=== PATIENT | male | born 1990 | race Caucasian/White ===

== ENCOUNTER 2016-11-17 00:26 | Emergency (ER) | payer BC, OTHER ==
[~2016-11-17] VITALS: Ht 182.9 cm; Wt 77.0 kg
[2016-11-17 00:37] VITALS: Ht 182.9 cm; Wt 77.0 kg
--- NOTE | 2016-11-17 02:18 | ERD ---
ER Documentation Chief Complaint Date/Time DATE: 11/17/16 TIME: 02:16 Chief Complaint RIGHT MIDDLE FINGER LACERATION WHILE WORKING ON MACHINE HPI 26-year-old male presents here in emergency department for complaints of a right middle finger laceration wound while working on a machine today. It got stuck between 2 metal. Patient complains of pain sharp pains expression scale, not better or worse with anything. Patient denies any numbness or tingling. Patient denies any foreign body on affected area. ROS All systems reviewed and are negative except as per history of present illness. Medications Home Meds Reported Medications [none] Unknown Strength No Conflict Check 11/17/16 Allergies Allergies: Coded Allergies: No Known Allergy (Unverified , 11/17/16) PMhx/Soc last tetanus was 3 yrs ago Medical and Surgical Hx: pt denies Medical Hx, pt denies Surgical Hx Hx Alcohol Use: No Hx Substance Use: No Smoking Status: Never smoker FmHx Family History: No coronary disease, No diabetes, No other Physical Exam Vitals Vital Signs Date Time Temp Pulse Resp B/P Pulse Ox O2 Delivery O2 Flow Rate FiO2 11/17/16 00:37 97.4 44 16 132/72 98 Physical Exam GENERAL: The patient is well developed and appropriate for usual state of health, in no apparent distress. CHEST: Clear to auscultation bilaterally. There are no rales, wheezes or rhonchi. HEART: Regular rate and rhythm. No murmurs, clicks, rubs or gallops. No S3 or S4. ABDOMEN: Soft, nontender and nondistended. Good bowel sounds. No rebound or guarding. No gross peritonitis. No gross organomegaly or masses. No Welsh sign or McBurney point tenderness. BACK: No midline or flank tenderness. EXTREMITIES: Equal pulses bilaterally. There is no peripheral clubbing, cyanosis or edema. No focal swelling or erythema. Full range of motion. Grossly neurovascularly intact. NEURO: Alert and oriented. Cranial nerves 2-12 intact. Motor strength in all 4 extremities with 5/5 strength. Sensation grossly intact. Normal speech and gait. SKIN: Note that 2 cm laceration wound noted in the middle finger of the right hand, palmar aspect. No foreign body, no tendon involvement. Able to do full range of motion without any restriction. There is no apparent rash or petechia. The skin is warm and dry. HEMATOLOGIC AND LYMPHATIC: There is no evidence of excessive bruising or lymphedema. No gross cervical, axillary, or inguinal lymphadenopathy. Results 24 hrs PROCEDURE: XR Right third finger CLINICAL INDICATION: Right third finger injury, laceration TECHNIQUE: AP, oblique and lateral views of the right third finger were obtained. COMPARISON: No prior studies are available for comparison. FINDINGS: The bones of the hand appear intact, with no evidence of fracture, dislocation, or subluxation. The joint spaces are preserved. Bone mineralization is normal. Laceration is apparent on the ulnar aspect of the mid to distal third finger. IMPRESSION: Laceration is apparent on the ulnar aspect of the mid to distal third finger. Otherwise unremarkable examination. RPTAT: HJES .Ashish Norton MD, MD Date Time Electronically viewed and signed by .Ashish Norton MD, on 11/17/2016 02:41 .S/ CC: MAURO NELSON NEON INSTALLER Procedures/MDM Procedure Note: After obtaining informed consent, the wound was irrigated with 250 ml of normal saline and cleaned with diluted betadine. Using aseptic technique, 3 ml of 1% lidocaine was injected on the subcutaneous tissue of the laceration wound for anesthetic. After the anesthetic, the wound was approximated using 3 interrupted sutures of 4-0 prolene. After the procedure, the wound was well approximated. Patient tolerated procedure well. Bacitracin was applied on the area and a dry dressing. Metal finger splint applied afterwards Medical Decision Making: Patient's pain is most likely consistent with a laceration on affected area, repaired w/o difficulty. There is no suspicion for neurovascular compromise. Patient has intact sensation and circulation of the affected extremity. There is low suspicion for septic arthritis. Patient does not have any fever. Radiology exams of the affected area does not show any fracture or dislocation. Disposition: Home. Patient is given prescription for ibuprofen for pain, Tennyson, Keflex. Patient was advised to elevate the affected area and apply ice on affected area. Patient was advised that if symptoms are worse, numbness, tingling, high fever, unable to move joint, worsening symptoms, to return to emergency department immediately. Otherwise, patient is advised to follow up with the primary care doctor 2 days wound check, suture removal in 7-10 days Departure Diagnosis: Primary Impression: Finger laceration Encounter type: initial encounter Finger: middle finger Damage to nail status: without damage Foreign body presence: without foreign body Laterality: right Qualified Code: S61.212A - Laceration of right middle finger without foreign body without damage to nail, initial encounter Condition: Stable Patient Instructions: Laceration, Hand Additional Instructions: Patient is given prescription for ibuprofen for pain, Tennyson, Keflex. Patient was advised to elevate the affected area and apply ice on affected area. Patient was advised that if symptoms are worse, numbness, tingling, high fever, unable to move joint, worsening symptoms, to return to emergency department immediately. Otherwise, patient is advised to follow up with the primary care doctor 2 days wound check, suture removal in 7-10 days MAURO NELSON NP Nov 17, 2016 02:18
--- NOTE | 2016-11-17 02:41 | RADRPT ---
PROCEDURE: XR Right third finger CLINICAL INDICATION: Right third finger injury, laceration TECHNIQUE: AP, oblique and lateral views of the right third finger were obtained. COMPARISON: No prior studies are available for comparison. FINDINGS: The bones of the hand appear intact, with no evidence of fracture, dislocation, or subluxation. The joint spaces are preserved. Bone mineralization is normal. Laceration is apparent on the ulnar aspect of the mid to distal third finger. IMPRESSION: Laceration is apparent on the ulnar aspect of the mid to distal third finger. Otherwise unremarkable examination. RPTAT: HJES .Ashish Norton MD, MD Date Time Electronically viewed and signed by .Ashish Norton MD, MD on 11/17/2016 02:41 .S/
[2016-11-17] MEDS ORDERED: CEPH-443 PO (03:10)
[2016-11-17] MEDS ORDERED: HYDR-906 PO (03:10)
[2016-11-17] MEDS ORDERED: IBUP-1542 PO (03:10)
== END 2016-11-17 03:11 | disposition home or self-care (01) ==
LOC: FTE 00:26
DX: S61.212A Laceration without foreign body of right middle finger without damage to nail, initial encounter (principal); W23.1XXA Caught, crushed, jammed, or pinched between stationary objects, initial encounter; Y92.89 Other specified places as the place of occurrence of the external cause
CPT/HCPCS: 73140